=== PATIENT | male | born 1990 | race Two or more races ===

== ENCOUNTER 2025-05-30 21:53 | Emergency (ER) | payer OTHER ==
[~2025-05-30] VITALS: Ht 177.8 cm; Wt 113.4 kg
[2025-05-31] MEDS ORDERED: EZALLOR SPRINKLE5 MG (00:04)
[2025-05-31] MEDS ORDERED: COZAAR100 MG (00:04)
[2025-05-31] MEDS ORDERED: METFORMIN HCL500 M3 (00:04)
[2025-05-31] MEDS ORDERED: SERTRALINE20 MG/1 ML (00:04)
[2025-05-31] MEDS ORDERED: ORPHENADRINE CITRATE 30 MG/ML AMPUL IM ONE (03:00)
[2025-05-31] MEDS ORDERED: KETOROLAC TROMETHAMINE 60 MG VIAL IM ONE ×2 (03:00→03:01)
[2025-05-31] MEDS ORDERED: ORPHENADRINE CITRATE 30 MG/ML AMPUL ONE (03:01)
[2025-05-31] MEDS ORDERED: DICLOFENAC SODI75 MG PO (03:08)
[2025-05-31] MEDS ORDERED: NORFLEX100MG PO (03:08)
== END 2025-05-31 03:44 | disposition home or self-care (01) ==
LOC: ER 22:31
DX: M25.562 Pain in left knee (principal); M54.2 Cervicalgia; Z88.2 Allergy status to sulfonamides